=== PATIENT | male | born 1965 | race Caucasian/White ===

== ENCOUNTER 2023-06-04 09:26 | Inpatient (IN) | payer OTHER ==
[~2023-06-04] VITALS: Ht 177.8 cm; Wt 96.6 kg
[2023-06-04 09:38] VITALS: BP_SYST 120; PULSE 80; RESP 18; TEMP 98.1; O2SAT 99
[2023-06-04] MEDS ORDERED: NACL 0.9% 1,000 ML IV ONE (09:45)
[2023-06-04 09:58] LABS: MEAN CORPUSCULAR HEMOGLOBIN 17 pg (27-31); MEAN CORPUSCULAR HGB CONC 29 % (32-36); MEAN CORPUSCULAR VOLUME 59 fL (79.0-98.0); PLATELET COUNT (AUTO) 439 K/uL (130-430); RED BLOOD CELL COUNT(AUTO) 2.94 MIL/uL (4.2-6.2); RED CELL DISTRIBUTION WIDTH 23.9 % (9.0-15.0); WHITE BLOOD COUNT (AUTO) 5.9 K/uL (4.8-10.8)
[2023-06-04 10:04] LABS: HEMATOCRIT 17.2 % (36-54); HEMOGLOBIN 4.9 g/dL (14.0-18.0)
[2023-06-04 10:10] LABS: ANION GAP 7 (5-15); CALCIUM 8.7 mg/dL (8.4-11.0); CARBON DIOXIDE 24 mmol/L (23-29); CHLORIDE 106 mmol/L (98-107); CREATININE 1.27 mg/dL (0.55-1.30); GFR AFRICAN AMERICAN 76 mL/min (>90); GFR NON AFRICAN-AMERICAN 63 mL/min (>90); GLUCOSE 103 mg/dL (74-106); POTASSIUM 4.1 mmol/L (3.5-5.1); SODIUM SERUM 137 mmol/L (136-145); UREA NITROGEN, BLOOD 14 mg/dL (8-21)
[2023-06-04 10:40] LABS: LYMPHOCYTES % (MANUAL) 15 % (20-46)
[2023-06-04 10:41] LABS: ANISOCYTOSIS 2+; BASOPHILS % (MANUAL) 0 % (0-2); EOSINOPHILS % (MANUAL) 2 % (0-7); HYPOCHROMASIA 3+; MONOCYTES % (MANUAL) 3 % (0-11); OVALOCYTES FEW; PLATELET ESTIMATE INCREASED (ADEQUATE); TARGET CELLS RARE; TEAR DROP CELLS RARE
[2023-06-04] MEDS ORDERED: ETOMIDATE 20 MG/ 10 ML VIAL (AMIDATE) ONE (10:50)
[2023-06-04] MEDS ORDERED: ETOMIDATE 20 MG/ 10 ML VIAL (AMIDATE) IVP ONE (11:00)
[2023-06-04] MEDS ORDERED: LORazepam 2 MG/ML VIAL IVP PRN (13:15)
[2023-06-04] MEDS ORDERED: ACETAMINOPHEN 325 MG TABLET PO PRN ×2 (13:15→14:15)
[2023-06-04] MEDS ORDERED: ONDANSETRON HCL 4 MG/2 ML VIAL IVP PRN (13:15)
[2023-06-04] MEDS: NORMAL SALINE 5 ML DISP.SYRIN IVF SCH ×2 (14:23→20:45)
[2023-06-04 14:31] LABS: BILIRUBIN,URINE NEGATIVE (NEGATIVE); BLOOD, URINE NEGATIVE (NEGATIVE); CLARITY/URINE CLEAR (CLEAR); COLOR,URINE YELLOW (YELLOW); GLUCOSE,URINE NEGATIVE (NEGATIVE); KETONES,URINE NEGATIVE (NEGATIVE); LEUKOCYTE ESTERASE ,URINE NEGATIVE (NEGATIVE); NITRITE, URINE NEGATIVE (NEGATIVE); PROTEIN URINE NEGATIVE (NEGATIVE); UROBILINOGEN,URINE 0.2 (0.2-1.0)
[2023-06-04 18:57] VITALS: BP_SYST 118; PULSE 93; RESP 16; TEMP 98.4
[2023-06-04 19:07] VITALS: O2SAT 98
[2023-06-04 19:45] VITALS: BP_SYST 136; PULSE 103; RESP 20; TEMP 98.5; O2SAT 98
[2023-06-04 20:25] LABS: CALCIUM 8.1 mg/dL (8.4-11.0); CREATININE 1.29 mg/dL (0.55-1.30); POTASSIUM 3.9 mmol/L (3.5-5.1)
[2023-06-05] VITALS (7 sets, daily range): BP systolic 114–141; PULSE 83–96; RESP 16–18; TEMP 98–99.3; O2SAT 96–98
[2023-06-05 00:43] LABS: BASOPHILS # (AUTO) 0.1 K/uL (0.0-0.2); BASOPHILS % (AUTO) 0.8 % (0.0-2.0); EOSINOPHILS # (AUTO) 0.1 K/uL (0.0-0.4); EOSINOPHILS % (AUTO) 0.8 % (0.0-4.0); HEMOGLOBIN 7.1 g/dL (14.0-18.0); LYMPHOCYTES # (AUTO) 1.2 K/uL (1.0-5.5); LYMPHOCYTES % (AUTO) 14.7 % (20.5-51.5); MEAN CORPUSCULAR HEMOGLOBIN 20 pg (27-31); MEAN CORPUSCULAR HGB CONC 31 % (32-36); MEAN CORPUSCULAR VOLUME 65 fL (79.0-98.0); MONOCYTES # (AUTO) 0.8 K/uL (0.0-1.0); MONOCYTES % (AUTO) 9.3 % (1.7-9.3); NEUTROPHILS # (AUTO) 6.2 K/uL (1.8-7.7); NEUTROPHILS % (AUTO) 74.4 % (40.0-70.0); PLATELET COUNT (AUTO) 465 K/uL (130-430); RED BLOOD CELL COUNT(AUTO) 3.57 MIL/uL (4.2-6.2); RED CELL DISTRIBUTION WIDTH 30.2 % (9.0-15.0); WHITE BLOOD COUNT (AUTO) 8.3 K/uL (4.8-10.8)
[2023-06-05] MEDS: HYDROcodone/ACETAMIN 5-325 MG TAB (NORCO/ VICODIN) PO PRN ×3 (00:52→20:37)
[2023-06-05 03:31] LABS: BILIRUBIN,URINE NEGATIVE (NEGATIVE); BLOOD, URINE NEGATIVE (NEGATIVE); CLARITY/URINE CLEAR (CLEAR); COLOR,URINE YELLOW (YELLOW); GLUCOSE,URINE NEGATIVE (NEGATIVE); KETONES,URINE NEGATIVE (NEGATIVE); LEUKOCYTE ESTERASE ,URINE NEGATIVE (NEGATIVE); NITRITE, URINE NEGATIVE (NEGATIVE); PH,URINE 6.5 (5.0-8.0); PROTEIN URINE NEGATIVE (NEGATIVE); UROBILINOGEN,URINE 0.2 (0.2-1.0)
[2023-06-05] MEDS: NORMAL SALINE 5 ML DISP.SYRIN IVF SCH ×3 (05:25→21:46)
[2023-06-05 06:27] LABS: BASOPHILS # (AUTO) 0.1 K/uL (0.0-0.2); BASOPHILS % (AUTO) 0.8 % (0.0-2.0); CALCIUM 8.1 mg/dL (8.4-11.0); CREATININE 1.27 mg/dL (0.55-1.30); EOSINOPHILS # (AUTO) 0.1 K/uL (0.0-0.4); EOSINOPHILS % (AUTO) 1.9 % (0.0-4.0); HEMATOCRIT 22.1 % (36-54); LYMPHOCYTES # (AUTO) 1.6 K/uL (1.0-5.5); LYMPHOCYTES % (AUTO) 22.8 % (20.5-51.5); MEAN CORPUSCULAR HEMOGLOBIN 20 pg (27-31); MEAN CORPUSCULAR HGB CONC 31 % (32-36); MEAN CORPUSCULAR VOLUME 64 fL (79.0-98.0); MONOCYTES # (AUTO) 0.8 K/uL (0.0-1.0); MONOCYTES % (AUTO) 11.2 % (1.7-9.3); NEUTROPHILS # (AUTO) 4.5 K/uL (1.8-7.7); NEUTROPHILS % (AUTO) 63.3 % (40.0-70.0); PLATELET COUNT (AUTO) 433 K/uL (130-430); RED BLOOD CELL COUNT(AUTO) 3.46 MIL/uL (4.2-6.2); RED CELL DISTRIBUTION WIDTH 30.5 % (9.0-15.0); RETICULOCYTE COUNT 2.1 % (0.5-1.5); WHITE BLOOD COUNT (AUTO) 7.2 K/uL (4.8-10.8)
[2023-06-05 06:40] LABS: HEMOGLOBIN 6.8 g/dL (14.0-18.0)
[2023-06-05 06:41] LABS: TOTAL IRON BIND. CAPACITY 378 ug/dL (250-450)
[2023-06-05] MEDS: PANTOPRAZOLE SODIUM 40 MG/VIAL (PROTONIX) IVP SCH ×2 (10:22→20:42)
[2023-06-05] MEDS: D5/0.45 NS 1,000 ML IV SCH ×2 (10:33→19:00)
[2023-06-05] MEDS ORDERED: IRON DEXTRAN COMPLEX 25 MG in NS 50 ML IV ONE (14:00)
[2023-06-05] MEDS ORDERED: IRON DEXTRAN COMPLEX 75 MG in NS 100 ML IV ONE (15:30)
[2023-06-05 17:01] LABS: INR 1.1 (0.80-1.20)
[2023-06-05 20:04] LABS: BASOPHILS # (AUTO) 0.1 K/uL (0.0-0.2); EOSINOPHILS # (AUTO) 0.1 K/uL (0.0-0.4); EOSINOPHILS % (AUTO) 0.9 % (0.0-4.0); HEMATOCRIT 24.7 % (36-54); HEMOGLOBIN 7.5 g/dL (14.0-18.0); LYMPHOCYTES # (AUTO) 0.9 K/uL (1.0-5.5); MEAN CORPUSCULAR HEMOGLOBIN 20 pg (27-31); MEAN CORPUSCULAR HGB CONC 30 % (32-36); MEAN CORPUSCULAR VOLUME 65 fL (79.0-98.0); MONOCYTES # (AUTO) 1.1 K/uL (0.0-1.0); NEUTROPHILS # (AUTO) 8.2 K/uL (1.8-7.7); NEUTROPHILS % (AUTO) 78.1 % (40.0-70.0); PLATELET COUNT (AUTO) 428 K/uL (130-430); RED BLOOD CELL COUNT(AUTO) 3.82 MIL/uL (4.2-6.2); WHITE BLOOD COUNT (AUTO) 10.5 K/uL (4.8-10.8)
[2023-06-05 22:48] LABS: ANISOCYTOSIS 3+; HYPOCHROMASIA 2+; POLYCHROMASIA 1+
[2023-06-05 22:49] LABS: OVALOCYTES MODERATE; TARGET CELLS FEW; TEAR DROP CELLS MODERATE
[2023-06-06] VITALS (7 sets, daily range): BP systolic 110–146; PULSE 72–110; RESP 18–22; TEMP 97.7–98.9; O2SAT 94–97
[2023-06-06] MEDS: NORMAL SALINE 5 ML DISP.SYRIN IVF SCH ×3 (04:06→21:13)
[2023-06-06] MEDS: D5/0.45 NS 1,000 ML IV SCH ×2 (04:38→15:00)
[2023-06-06 06:32] LABS: CALCIUM 8.2 mg/dL (8.4-11.0); CREATININE 1.13 mg/dL (0.55-1.30); POTASSIUM 3.7 mmol/L (3.5-5.1)
[2023-06-06 06:34] LABS: BASOPHILS # (AUTO) 0.1 K/uL (0.0-0.2); EOSINOPHILS # (AUTO) 0.2 K/uL (0.0-0.4); EOSINOPHILS % (AUTO) 2.8 % (0.0-4.0); HEMATOCRIT 24.7 % (36-54); HEMOGLOBIN 7.5 g/dL (14.0-18.0); LYMPHOCYTES # (AUTO) 1.1 K/uL (1.0-5.5); LYMPHOCYTES % (AUTO) 13.4 % (20.5-51.5); MEAN CORPUSCULAR HEMOGLOBIN 20 pg (27-31); MEAN CORPUSCULAR HGB CONC 30 % (32-36); MEAN CORPUSCULAR VOLUME 65 fL (79.0-98.0); MONOCYTES % (AUTO) 12.7 % (1.7-9.3); NEUTROPHILS # (AUTO) 5.7 K/uL (1.8-7.7); NEUTROPHILS % (AUTO) 70.1 % (40.0-70.0); PLATELET COUNT (AUTO) 426 K/uL (130-430); RED BLOOD CELL COUNT(AUTO) 3.81 MIL/uL (4.2-6.2); RED CELL DISTRIBUTION WIDTH 31.2 % (9.0-15.0); WHITE BLOOD COUNT (AUTO) 8.2 K/uL (4.8-10.8)
[2023-06-06] MEDS ORDERED: HYDROmorphone 2 MG/ML VIAL ONE (07:12)
[2023-06-06] MEDS ORDERED: MIDAZOLAM HCL 2 MG/2 ML VIAL (VERSED) ONE (07:12)
[2023-06-06] MEDS ORDERED: SUCCINYLCHOLINE CHLORIDE 20 MG/ML(QUELICIN) ONE (07:24)
[2023-06-06] MEDS ORDERED: CEFAZOLIN 2 GM IVPB PREMIX 50 ML IV ONE (07:24)
[2023-06-06] MEDS ORDERED: BUPIVACAINE /PF 0.25% 30 ML VIAL INJ ONE (07:24)
[2023-06-06] MEDS ORDERED: SEVOFLURANE 15 MIN GAS INH ONE (07:24)
[2023-06-06] MEDS ORDERED: TRANEXAMIC ACID 1,000 MG/10 ML VIAL ONE (07:24)
[2023-06-06] MEDS ORDERED: PROPOFOL 200MG/ 20ML VIAL (DIPRIVAN) IV ONE (07:24)
[2023-06-06] MEDS ORDERED: ONDANSETRON HCL 4 MG/2 ML VIAL ONE (07:24)
[2023-06-06] MEDS ORDERED: LR 1,000 ML IV.SOLN IV ONE (07:24)
[2023-06-06] MEDS ORDERED: NS IRRIG SOLN 1000 ML IR ONE (07:24)
[2023-06-06] MEDS ORDERED: LIDOCAINE/EPI 1% 1:100000 20 ML VIAL ONE (07:24)
[2023-06-06] MEDS ORDERED: DEXAMETHASONE SOD PHOSPHATE 4 MG/ML VIAL ONE (07:24)
[2023-06-06] MEDS ORDERED: METOCLOPRAMIDE HCL 10 MG/2 ML VIAL IVP PRN (09:00)
[2023-06-06] MEDS: PANTOPRAZOLE SODIUM 40 MG/VIAL (PROTONIX) IVP SCH ×2 (09:00→21:12)
[2023-06-06] MEDS ORDERED: HYDROmorphone 1 MG/ML INJ. CARTRIDGE IVP PRN ×2 (09:00)
[2023-06-06] MEDS ORDERED: ONDANSETRON HCL 4 MG/2 ML VIAL IVP PRN (09:00)
[2023-06-06] MEDS ORDERED: NALOXONE HCL 0.4 MG/ML AMP (NARCAN) IVP PRN ×2 (09:00)
[2023-06-06 10:51] LABS: BASOPHILS % (AUTO) 0.5 % (0.0-2.0); EOSINOPHILS % (AUTO) 0.5 % (0.0-4.0); HEMATOCRIT 24.9 % (36-54); HEMOGLOBIN 7.5 g/dL (14.0-18.0); LYMPHOCYTES # (AUTO) 0.4 K/uL (1.0-5.5); MEAN CORPUSCULAR HEMOGLOBIN 20 pg (27-31); MEAN CORPUSCULAR HGB CONC 30 % (32-36); MEAN CORPUSCULAR VOLUME 65 fL (79.0-98.0); MONOCYTES # (AUTO) 0.2 K/uL (0.0-1.0); MONOCYTES % (AUTO) 2.5 % (1.7-9.3); NEUTROPHILS # (AUTO) 8.7 K/uL (1.8-7.7); NEUTROPHILS % (AUTO) 92.5 % (40.0-70.0); PLATELET COUNT (AUTO) 410 K/uL (130-430); RED BLOOD CELL COUNT(AUTO) 3.82 MIL/uL (4.2-6.2); RED CELL DISTRIBUTION WIDTH 31.5 % (9.0-15.0); WHITE BLOOD COUNT (AUTO) 9.4 K/uL (4.8-10.8)
[2023-06-06] MEDS ORDERED: CHOLECALCIFEROL (VITAMIN D3) 5,000 UNIT TABLET PO ONE (11:00)
[2023-06-06] MEDS: ceFAZolin SODIUM 2 GM in D5W 100 ML IV SCH ×2 (14:32→21:13)
[2023-06-06] MEDS: IRON DEXTRAN COMPLEX 100 MG in NS 100 ML IV SCH (15:31)
[2023-06-06] MEDS: HYDROcodone/ACETAMIN 5-325 MG TAB (NORCO/ VICODIN) PO PRN (21:29)
[2023-06-07] VITALS: BP_SYST 122; PULSE 109; RESP 19; TEMP 98.8; O2SAT 96
[2023-06-07] MEDS: D5/0.45 NS 1,000 ML IV SCH ×3 (01:05→20:32)
[2023-06-07] MEDS: ceFAZolin SODIUM 2 GM in D5W 100 ML IV SCH ×3 (05:47→22:30)
[2023-06-07] MEDS: NORMAL SALINE 5 ML DISP.SYRIN IVF SCH ×3 (05:47→22:30)
[2023-06-07 07:18] LABS: BASOPHILS # (AUTO) 0.1 K/uL (0.0-0.2); BASOPHILS % (AUTO) 0.4 % (0.0-2.0); EOSINOPHILS % (AUTO) 0.3 % (0.0-4.0); HEMATOCRIT 23.7 % (36-54); LYMPHOCYTES % (AUTO) 8.8 % (20.5-51.5); MEAN CORPUSCULAR HEMOGLOBIN 19 pg (27-31); MEAN CORPUSCULAR HGB CONC 30 % (32-36); MEAN CORPUSCULAR VOLUME 65 fL (79.0-98.0); MONOCYTES # (AUTO) 1.4 K/uL (0.0-1.0); MONOCYTES % (AUTO) 11.8 % (1.7-9.3); NEUTROPHILS # (AUTO) 9.1 K/uL (1.8-7.7); NEUTROPHILS % (AUTO) 78.7 % (40.0-70.0); PLATELET COUNT (AUTO) 427 K/uL (130-430); RED BLOOD CELL COUNT(AUTO) 3.63 MIL/uL (4.2-6.2); RED CELL DISTRIBUTION WIDTH 31.5 % (9.0-15.0); WHITE BLOOD COUNT (AUTO) 11.6 K/uL (4.8-10.8)
[2023-06-07 07:34] LABS: ERYTHROCYTE SEDIMENTATION RATE 22 MM/HR (0-15)
[2023-06-07 07:37] LABS: ALBUMIN 3.1 g/dL (3.4-4.8); CALCIUM 7.8 mg/dL (8.4-11.0); CREATININE 1.21 mg/dL (0.55-1.30); POTASSIUM 3.6 mmol/L (3.5-5.1); TOTAL BILIRUBIN 0.3 mg/dL (0.0-1.0); TOTAL PROTEIN, SERUM 6.9 g/dL (6.4-8.3)
[2023-06-07 07:55] VITALS: BP_SYST 126; PULSE 104; RESP 20; TEMP 100.9; O2SAT 96
[2023-06-07] MEDS: PANTOPRAZOLE SODIUM 40 MG/VIAL (PROTONIX) IVP SCH ×2 (08:04→20:32)
[2023-06-07] MEDS: CHOLECALCIFEROL (VITAMIN D3) 5,000 UNIT TABLET PO SCH (08:04)
[2023-06-07] MEDS: HYDROcodone/ACETAMIN 5-325 MG TAB (NORCO/ VICODIN) PO PRN ×2 (08:14→12:55)
[2023-06-07] MEDS ORDERED: cephALEXin 500 MG CAPSULE PO SCH (09:00)
[2023-06-07 09:41] VITALS: O2SAT 96
[2023-06-07 12:10] VITALS: BP_SYST 117; PULSE 91; RESP 22; TEMP 99.7; O2SAT 98
[2023-06-07] MEDS: IRON DEXTRAN COMPLEX 100 MG in NS 100 ML IV SCH (15:18)
[2023-06-07] MEDS ORDERED: BISACODYL 5 MG TABLET.DR (DULCOLAX) PO ONE (17:00)
[2023-06-07] MEDS ORDERED: GOLYTELY / COLYTE SOLUTION 4 LITERS PO ONE (18:00)
[2023-06-07 18:31] VITALS: BP_SYST 140; PULSE 110; RESP 20; TEMP 98.4; O2SAT 99
[2023-06-07 20:00] VITALS: BP_SYST 143; PULSE 103; RESP 18; RESP 20; TEMP 97.3; TEMP 97.8; O2SAT 96; O2SAT 97; O2SAT 98
[2023-06-08] VITALS (7 sets, daily range): BP systolic 116–129; PULSE 89–99; RESP 16–22; TEMP 97.5–99.4; O2SAT 95–98
[2023-06-08 05:09] LABS: ERYTHROCYTE SEDIMENTATION RATE 16 MM/HR (0-15)
[2023-06-08 05:45] LABS: INR 1.1 (0.80-1.20); PROTHROMBIN TIME 10.9 SECS (9.5-12.5)
[2023-06-08 05:52] LABS: CALCIUM 8.2 mg/dL (8.4-11.0); CREATININE 1.05 mg/dL (0.55-1.30); POTASSIUM 3.6 mmol/L (3.5-5.1)
[2023-06-08] MEDS: D5/0.45 NS 1,000 ML IV SCH ×2 (06:05→21:32)
[2023-06-08] MEDS: ceFAZolin SODIUM 2 GM in D5W 100 ML IV SCH ×3 (06:10→21:32)
[2023-06-08] MEDS: NORMAL SALINE 5 ML DISP.SYRIN IVF SCH ×2 (06:11→21:36)
[2023-06-08 08:02] LABS: BASOPHILS # (AUTO) 0.1 K/uL (0.0-0.2); BASOPHILS % (AUTO) 0.5 % (0.0-2.0); EOSINOPHILS % (AUTO) 0.3 % (0.0-4.0); HEMATOCRIT 22.7 % (36-54); LYMPHOCYTES % (AUTO) 8.7 % (20.5-51.5); MEAN CORPUSCULAR HEMOGLOBIN 19 pg (27-31); MEAN CORPUSCULAR HGB CONC 29 % (32-36); MEAN CORPUSCULAR VOLUME 65 fL (79.0-98.0); MONOCYTES # (AUTO) 0.9 K/uL (0.0-1.0); MONOCYTES % (AUTO) 8.1 % (1.7-9.3); NEUTROPHILS # (AUTO) 9.2 K/uL (1.8-7.7); NEUTROPHILS % (AUTO) 82.4 % (40.0-70.0); PLATELET COUNT (AUTO) 431 K/uL (130-430); RED BLOOD CELL COUNT(AUTO) 3.47 MIL/uL (4.2-6.2); WHITE BLOOD COUNT (AUTO) 11.2 K/uL (4.8-10.8)
[2023-06-08 09:20] LABS: HEMOGLOBIN 6.6 g/dL (14.0-18.0)
[2023-06-08 09:21] LABS: RED CELL DISTRIBUTION WIDTH 32.4 % (9.0-15.0)
[2023-06-08] MEDS: PANTOPRAZOLE SODIUM 40 MG/VIAL (PROTONIX) IVP SCH ×2 (09:42→21:32)
[2023-06-08] MEDS: CHOLECALCIFEROL (VITAMIN D3) 5,000 UNIT TABLET PO SCH ×2 (09:42→09:54)
[2023-06-08] MEDS ORDERED: MEPERIDINE 100 MG INJ. 100 MG/ML VIAL ONE (11:53)
[2023-06-08] MEDS ORDERED: MIDAZOLAM HCL 5 MG/5 ML VIAL ONE ×2 (11:54→12:25)
[2023-06-08] MEDS ORDERED: SIMETHICONE 40 MG/0.6 ML ML ONE (11:54)
[2023-06-08] MEDS ORDERED: DIPHENHYDRAMINE INJ 50 MG/ML VIAL ONE (12:13)
[2023-06-08] MEDS: IRON DEXTRAN COMPLEX 100 MG in NS 100 ML IV SCH (21:31)
[2023-06-09 00:35] VITALS: BP_SYST 118; PULSE 89; RESP 19; TEMP 99.2; O2SAT 100
[2023-06-09] MEDS: D5/0.45 NS 1,000 ML IV SCH ×2 (03:00→13:00)
[2023-06-09] MEDS: ceFAZolin SODIUM 2 GM in D5W 100 ML IV SCH ×3 (05:05→22:52)
[2023-06-09] MEDS: NORMAL SALINE 5 ML DISP.SYRIN IVF SCH ×3 (05:06→22:53)
[2023-06-09 05:17] LABS: BASOPHILS # (AUTO) 0.1 K/uL (0.0-0.2); BASOPHILS % (AUTO) 0.9 % (0.0-2.0); EOSINOPHILS # (AUTO) 0.3 K/uL (0.0-0.4); EOSINOPHILS % (AUTO) 4.2 % (0.0-4.0); HEMATOCRIT 25.7 % (36-54); HEMOGLOBIN 7.8 g/dL (14.0-18.0); LYMPHOCYTES # (AUTO) 1.2 K/uL (1.0-5.5); LYMPHOCYTES % (AUTO) 16.4 % (20.5-51.5); MEAN CORPUSCULAR HEMOGLOBIN 21 pg (27-31); MEAN CORPUSCULAR HGB CONC 30 % (32-36); MEAN CORPUSCULAR VOLUME 68 fL (79.0-98.0); MONOCYTES # (AUTO) 0.7 K/uL (0.0-1.0); NEUTROPHILS # (AUTO) 4.9 K/uL (1.8-7.7); NEUTROPHILS % (AUTO) 68.5 % (40.0-70.0); PLATELET COUNT (AUTO) 377 K/uL (130-430); RED BLOOD CELL COUNT(AUTO) 3.78 MIL/uL (4.2-6.2); WHITE BLOOD COUNT (AUTO) 7.2 K/uL (4.8-10.8)
[2023-06-09 05:40] LABS: CALCIUM 8.7 mg/dL (8.4-11.0); CREATININE 0.93 mg/dL (0.55-1.30); POTASSIUM 3.7 mmol/L (3.5-5.1)
[2023-06-09 06:36] LABS: ERYTHROCYTE SEDIMENTATION RATE 39 MM/HR (0-15)
[2023-06-09 08:00] VITALS: BP_SYST 137; PULSE 87; RESP 18; TEMP 97.2; O2SAT 100
[2023-06-09 08:05] VITALS: PULSE 90; O2SAT 100
[2023-06-09] MEDS: CHOLECALCIFEROL (VITAMIN D3) 5,000 UNIT TABLET PO SCH (08:19)
[2023-06-09] MEDS: PANTOPRAZOLE SODIUM 40 MG/VIAL (PROTONIX) IVP SCH ×2 (08:19→22:52)
[2023-06-09 11:32] VITALS: BP_SYST 126; PULSE 91; RESP 19; TEMP 98.1; O2SAT 98
[2023-06-09 16:18] VITALS: BP_SYST 132; PULSE 89; RESP 18; TEMP 97.8; O2SAT 99
[2023-06-09] MEDS: IRON DEXTRAN COMPLEX 100 MG in NS 100 ML IV SCH (17:08)
[2023-06-09 20:00] VITALS: BP_SYST 136; PULSE 82; RESP 18; TEMP 98.5; O2SAT 99
[2023-06-10] VITALS (7 sets, daily range): BP systolic 122–139; PULSE 80–88; RESP 17–18; TEMP 97.6–98.6; O2SAT 97–100
[2023-06-10] MEDS: D5/0.45 NS 1,000 ML IV SCH ×2 (00:37→09:00)
[2023-06-10 05:00] LABS: BASOPHILS % (AUTO) 0.6 % (0.0-2.0); EOSINOPHILS # (AUTO) 0.2 K/uL (0.0-0.4); EOSINOPHILS % (AUTO) 2.6 % (0.0-4.0); HEMATOCRIT 27.2 % (36-54); HEMOGLOBIN 8.2 g/dL (14.0-18.0); LYMPHOCYTES % (AUTO) 13.7 % (20.5-51.5); MEAN CORPUSCULAR HEMOGLOBIN 21 pg (27-31); MEAN CORPUSCULAR HGB CONC 30 % (32-36); MEAN CORPUSCULAR VOLUME 68 fL (79.0-98.0); MONOCYTES # (AUTO) 0.6 K/uL (0.0-1.0); MONOCYTES % (AUTO) 8.9 % (1.7-9.3); NEUTROPHILS # (AUTO) 5.4 K/uL (1.8-7.7); NEUTROPHILS % (AUTO) 74.2 % (40.0-70.0); PLATELET COUNT (AUTO) 407 K/uL (130-430); RED BLOOD CELL COUNT(AUTO) 4.01 MIL/uL (4.2-6.2); RED CELL DISTRIBUTION WIDTH 31.8 % (9.0-15.0); WHITE BLOOD COUNT (AUTO) 7.3 K/uL (4.8-10.8)
[2023-06-10 05:17] LABS: ERYTHROCYTE SEDIMENTATION RATE 35 MM/HR (0-15)
[2023-06-10 05:19] LABS: CALCIUM 8.3 mg/dL (8.4-11.0); POTASSIUM 3.6 mmol/L (3.5-5.1)
[2023-06-10] MEDS: ceFAZolin SODIUM 2 GM in D5W 100 ML IV SCH (06:31)
[2023-06-10] MEDS: NORMAL SALINE 5 ML DISP.SYRIN IVF SCH (06:32)
[2023-06-10] MEDS: PANTOPRAZOLE SODIUM 40 MG/VIAL (PROTONIX) IVP SCH (09:14)
[2023-06-10] MEDS: CHOLECALCIFEROL (VITAMIN D3) 5,000 UNIT TABLET PO SCH (09:14)
[2023-06-10] MEDS ORDERED: NORMAL SALINE 5 ML DISP.SYRIN IVF SCH (14:00)
[2023-06-10] MEDS ORDERED: HYDR-3919 PO (16:19)
[2023-06-10] MEDS ORDERED: PRO40 PO (16:19)
[2023-06-10] MEDS ORDERED: CHOL500013 PO (16:19)
[2023-06-10] MEDS ORDERED: ACET325T PO (16:19)
== END 2023-06-10 18:40 | DRG 492 ==
LOC: SED 09:26 → STU 13:12 → SMU 06-06 11:58
PROVIDERS: ADMIT Preventive Medicine Preventive Medicine/Occupational Environmental Medicine; ATTEND Preventive Medicine Preventive Medicine/Occupational Environmental Medicine
PROC: 2W3RX1Z Immobilization of Left Lower Leg using Splint (ICD-10-PCS; 2023-06-04)
PROC: 0MQR0ZZ Repair Left Ankle Bursa and Ligament, Open Approach (ICD-10-PCS; 2023-06-06)
PROC: 0QSK04Z Reposition Left Fibula with Internal Fixation Device, Open Approach (ICD-10-PCS; principal; 2023-06-06 07:24)
PROC: 0DB68ZX Excision of Stomach, Via Natural or Artificial Opening Endoscopic, Diagnostic (ICD-10-PCS; 2023-06-08)
PROC: 0DBM8ZZ Excision of Descending Colon, Via Natural or Artificial Opening Endoscopic (ICD-10-PCS; 2023-06-08)
PROC: 0DB98ZX Excision of Duodenum, Via Natural or Artificial Opening Endoscopic, Diagnostic (ICD-10-PCS; 2023-06-08 10:00)
DX: S82.852A Displaced trimalleolar fracture of left lower leg, initial encounter for closed fracture (principal); J18.9 Pneumonia, unspecified organism; K29.71 Gastritis, unspecified, with bleeding; E87.1 Hypo-osmolality and hyponatremia; D64.9 Anemia, unspecified; E83.52 Hypercalcemia; R73.9 Hyperglycemia, unspecified; W18.39XA Other fall on same level, initial encounter; E88.09 Other disorders of plasma-protein metabolism, not elsewhere classified; S93.422A Sprain of deltoid ligament of left ankle, initial encounter; E83.51 Hypocalcemia; E66.9 Obesity, unspecified; D75.839 Thrombocytosis, unspecified; K44.9 Diaphragmatic hernia without obstruction or gangrene; F41.9 Anxiety disorder, unspecified; K63.5 Polyp of colon; K64.9 Unspecified hemorrhoids; R50.82 Postprocedural fever; R73.03 Prediabetes; Y93.89 Activity, other specified; Y92.89 Other specified places as the place of occurrence of the external cause; Y99.8 Other external cause status; Z68.30 Body mass index [BMI] 30.0-30.9, adult
CPT/HCPCS: 36415; 43239; 45382; 45384; 45385; 70450-TC; 71045; 73590-TC; 73700-TC; 76001; 76376; 80048; 80053; 81001; 81003; 82607; 82728; 82746; 83540; 83550; 83605; 83880; 84484; 85007; 85025; 85027; 85044; 85610-TC; 85651-TC; 85730-TC; 86886; 86900; 86901; 86920; 87040; 87081; 88305; 88312; 88313; 93005; 93306; 93880; 95816; 97110-GP; 97116-GP; 97530-GP; 99291; C1713; C1769; C9113; G0378; J0330; J0690; J1100; J1170; J1200; J1750; J2175; J2250; J2405; J2704; J3465; J3490; J7060; J7120; P9021